=== PATIENT | female | born 1940 | race Caucasian/White ===

== ENCOUNTER 2016-09-17 18:01 | Emergency (ER) | payer OTHER ==
--- NOTE | 2016-09-17 19:31 | ED ORDER SUMMARY ---
..... Patient: DONATO ELLIS OrderSheet [facility] VisitID: [id number] [place] [address] 75y, F Registration Date/Time: 09/17/2016 ORDER SHEET Weight: 99.7 kg (stated) Allergies: No Known Drug Allergy GENERAL ORDERS: Hip 2V Right w AP Pelvis Urgent (18:08 09/17/2016 [facility]) (Ack 18:09 TBergley) (18:42 JSimbeck R.N.) Shoulder 2V or more Right Urgent (18:08 09/17/2016 [facility]) (Ack 18:09 TBergley) (18:42 JSimbeck R.N.) MEDICATION ORDERS: Ibuprofen PO 600 mg (NOW) (19:24 09/17/2016 [facility]) (Ack 19:27 RMarsden R.N.) (19:38 RMarsden R.N.) Zofran ODT PO 4 mg (NOW) (19:24 09/17/2016 [facility]) (Ack 19:27 RMarsden R.N.) (19:39 RMarsden R.N.) Acetaminophen PO 1,000 mg (NOW) (19:24 09/17/2016 [facility]) (Ack 19:27 RMarsden R.N.) (19:39 RMarsden R.N.) IV FLUIDS: ORDER SHEET NOTES: [Electronically signed by Kimberly Doyle R.N. (19:50 09/17/2016)] [Electronically signed by Nigel Oden DO (20:07 09/17/2016)] [Electronically locked/signed by Kimberly Doyle R.N. (19:50 09/17/2016)]
--- NOTE | 2016-09-17 19:31 | ED CLINICAL REPORT ---
Clinical Report - Physicians/Mid Levels [facility]ly [facility] [address] [place] [address] 09/17/2016 18:00 Patient: DONATO ELLIS Time Seen: 18:05. Arrived- By ambulance. Historian- patient and EMS personnel. HISTORY OF PRESENT ILLNESS Chief Complaint: LEFT HIP INJURY. The patient also has injury to right upper extremity (shoulder) and right lower extremity (hip). The injury occurred just prior to arrival. 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 The patient complains of moderate pain. No blow to the head, neck pain, loss of consciousness or seizure. Not dazed. REVIEW OF SYSTEMS No numbness, hearing loss, headache, loss of vision or chest pain. No depression, weakness, abdominal pain, nausea or difficulty breathing. No bladder dysfunction, laceration, fever or vomiting. PAST HISTORY See nurses notes. Hypertension. Type II diabetes mellitus treated with oral med. Chronic back pain. History of cancer ("skin"). Surgeries: Right shoulder surgery. Medications: MetFORMIN HCl Oral. Allergies: No Known Drug Allergy. SOCIAL HISTORY No alcohol use or drug use. ADDITIONAL NOTES The nursing notes have been reviewed. PHYSICAL EXAM Vital Signs: 09/17/2016 18:05 BP: 180/65. HR: 75. RR: 20. O2 saturation: 97%. Temp: 98.2 F. Pain level now: 09/17. Appearance: Alert. Oriented X3. Patient in mild distress. Head: Head non-tender. No Rivera's sign or raccoon eyes. Eyes: Pupils equal, round and reactive to light. EOM intact. ENT: Pharynx normal. Neck: Painless ROM. Non-tender. CVS: Heart sounds normal. Pulses normal. Respiratory: Breath sounds normal. Chest nontender. Abdomen: No visible injury. Soft and nontender. No mass. Obese. Back: No tenderness. ROM normal. No vertebral point tenderness. Skin: Skin intact. Skin warm and dry. Normal skin color. Normal skin turgor. Extremities: Normal inspection. Right shoulder: mild tenderness. No swelling, laceration, abrasion, ecchymosis or puncture wound. No foreign body or deformity. No limitation in ROM. Pelvis stable. Right hip: moderate tenderness. Neurovascular intact distally. No erythema, swelling, laceration, abrasion or ecchymosis. No puncture wound, foreign body or deformity. Not localized to the lateral aspect of the hip. No limitation in ROM. The right leg is not shortened, externally rotated, internally rotated, flexed or adducted. The right leg is not abducted. Right thigh: moderate tenderness located in the lateral aspect of upper thigh. Neurovascular intact distally. No erythema, swelling, laceration, abrasion or ecchymosis. No puncture wound, foreign body or deformity. Right knee. No tenderness or swelling. No limitation in ROM. Neuro: Oriented X 3. No motor deficit. No sensory deficit. LABS, X-RAYS, AND EKG Pelvis X-ray: No fracture. Views: AP. Technique: good. The X-rays were interpreted contemporaneously by me. Rt Shoulder X-ray: No fracture. (old surgery). Views: AP with external rotation and "Y" view. Technique: good. The X-rays were interpreted contemporaneously by me. Rt Hip X-ray: No fracture. Normal alignment. No bony lesion or air in the soft tissue. Soft tissues normal. Joint spaces normal. Views: 2 view hip series. Technique: good. The X-rays were interpreted contemporaneously by me. PROGRESS AND PROCEDURES Course of Care: Acetaminophen 1000 mg PO given. Ibuprofen 600 mg PO given. Zofran 4 mg ODT PO given. 19:25 09/17/16. Pt ambulatory in the ED with lateral thigh tenderness, but steady on feet - no pelvic pain or tenderness. No signs of fracture on x-ray, but pt is informed of the small chance of a small, nondisplaced fracture that may require further evaluation with MRI / CT or bone scan if pain continues / does not improve as expected. Patient/family counseled. Disposition: Discharged. Condition: stable and improved. CLINICAL IMPRESSION Contusion to the right shoulder, right hip and right thigh. Essential hypertension. INSTRUCTIONS Apply ice. You may walk and bear weight as tolerated. Warnings: GENERAL WARNINGS: Return or contact your physician immediately if your condition worsens or changes unexpectedly, if not improving as expected, or if other problems arise. Your Current Medications: CONTINUE TAKING THE FOLLOWING MEDICATIONS: MetFORMIN HCl Oral. Prescription Medications: Ibuprofen 600mg tablets: take 1 tablet orally every 8 hours as needed for pain. Dispense thirty (30). No refills. OTC Medications: Acetaminophen (available over the counter): take according to label instructions. Follow-up: Follow up with your doctor in about three days. Screening today revealed the patient's blood pressure to be in the hypertensive range. The patient should follow up with a primary care provider for blood pressure management. (Electronically signed by Ngiel Oden DO 09/17/2016 20:07)
--- NOTE | 2016-09-17 19:31 | ED NURSING NOTES ---
Clinical Report - Nurses [place] [address] [place] [address] 09/17/2016 18:00 Patient: DONATO ELLIS TRIAGE Triage time 18:05. Acuity: LEVEL 4. Chief Complaint: FALL (Tripped and fell onto her right hip and right shoulder, pain in both.). SEPSIS SCREEN: Sepsis Screen. Negative (no infection suspected/documented). ROMIE COMA SCORE: Romie Coma Scale: 15- eyes open spontaneously (4); best verbal response- oriented x 4 (5); best motor response- obeys commands (6). --18:12 Gregg Sanches R.N. 18:05 09/17/16. BP: 180/65 (regular adult cuff) taken on the left arm, while lying. HR: 75. RR: 20. O2 saturation: 97% on room air. Temp: 98.2 F (oral). Pain level now: 09/17. --18:12 Gregg Sanches R.N. Weight: 99.7 kg stated. Height/Length: 63 inches Per Patient. BMI: 38.9. --18:11 Gregg Sanches R.N. Medications MetFORMIN HCl Oral. --18:08 Gregg Sanches R.N. Allergies No Known Drug Allergy. --18:07 Gregg Sanches R.N. History Arrived by EMS, and (A-47). Historian: EMS and patient. This occurred just prior to arrival. SOCIAL HX: Smoker- current status unknown (cigarette). No alcohol use or drug use. ABUSE ASSESSMENT: No report of abuse. --18:12 Gregg Sanches R.N. PROBLEMS: Skin Cancer. Hypertension. Diabetes Mellitus. --18:10 Gregg Sanches R.N. ADDITIONAL SURGERIES: Right shoulder. --18:10 Gregg Sanches R.N. Interventions ID band on patient. To treatment room. --18:12 Gregg Sanches R.N. PHYSICAL ASSESSMENT late entry -18:11. To room via stretcher. GENERAL / NEURO / PSYCH: Alert. Oriented X 4. Appears in no acute distress. HEENT: Pupils equal, round and reactive to light. Head non-tender. RESPIRATORY: Respirations not labored. Chest nontender. Breath sounds within normal limits. CVS: Pulses within normal limits. Capillary refill less than 2 seconds. GI / : Abdomen soft and nontender. EXTREMITIES: Limited ROM present in the right shoulder and right hip. Neuro-vascular status intact to the extremity. SKIN: Skin intact. Skin is warm and dry. --18:21 Gregg Sanches R.N. NURSING PROGRESS NOTES late entry -18:11. Reassurance given. Two patient identifiers checked. Call light placed in reach. Side rails up x 2. Bed placed in lowest position. Brakes of bed on. Patient ready for evaluation- chart flagged. --18:22 Gregg Sanches R.N. 19:13 09/17/16. Care transferred and report received (from MILLER Escobedo). --19:13 Kimberly Doyle R.N. ( Patient ambulated with some stiffness and pain. She is able to walk independently. Patient was walking with limp. Patient's daughter notes that the patient typically has a limp due to back pain.). --19:26 Kimberly Doyle R.N. 19:38 09/17/2016 Ibuprofen PO Tablets 600 mg given. Allergies verified and confirmed 5 rights. --19:38 Kimberly Doyle R.N. 19:39 09/17/2016 Zofran ODT (Ondansetron) PO Oral Disintegrating Tablets 4 mg given. Allergies verified and confirmed 5 rights. --19:39 Kimberly Doyle R.N. 19:39 09/17/2016 Acetaminophen (APAP) PO Tablets 1000 mg given. Allergies verified and confirmed 5 rights. --19:39 Kimberly Doyle R.N. DISPOSITION / DISCHARGE 19:36 09/17/16. --19:36 Kimberly Doyle R.N. 19:35 09/17/16. BP: 170/74. HR: 71. RR: 16. O2 saturation: 95%. Temp: deferred. Pain level now: 11/17. --19:36 Kimberly Doyle R.N. 19:50 09/17/16. Condition at departure: improved. No learning barriers present. Discharge instructions provided and reviewed with the patient and family. Reviewed warnings. Reviewed medication(s). Treatments reviewed. Activity restrictions reviewed. Patient and family verbalized understanding. Written instructions provided in [place]ian. The patient was discharged home and accompanied by family. She left the Emergency Department ambulatory and via private vehicle. Family member driving. ( Patient ambulated to car with RN. Patient's daughter is driving. Patient was given an ice bag to use in the car.). --19:50 Kimberly Doyle R.N. Locked/Released at 09/17/2016 19:50 by Kimberly Doyle R.N.
--- NOTE | 2016-09-17 19:31 | ED CLINICAL REPORT ---
Clinical Report - Physicians/Mid Levels [facility] [address] [place] [address] 09/17/2016 18:00 Patient: DONATO ELLIS Time Seen: 18:05. Arrived- By ambulance. Historian- patient and EMS personnel. HISTORY OF PRESENT ILLNESS Chief Complaint: LEFT HIP INJURY. The patient also has injury to right upper extremity (shoulder) and right lower extremity (hip). The injury occurred just prior to arrival. 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 The patient complains of moderate pain. No blow to the head, neck pain, loss of consciousness or seizure. Not dazed. REVIEW OF SYSTEMS No numbness, hearing loss, headache, loss of vision or chest pain. No depression, weakness, abdominal pain, nausea or difficulty breathing. No bladder dysfunction, laceration, fever or vomiting. PAST HISTORY See nurses notes. Hypertension. Type II diabetes mellitus treated with oral med. Chronic back pain. History of cancer ("skin"). Surgeries: Right shoulder surgery. Medications: MetFORMIN HCl Oral. Allergies: No Known Drug Allergy. SOCIAL HISTORY No alcohol use or drug use. ADDITIONAL NOTES The nursing notes have been reviewed. PHYSICAL EXAM Vital Signs: 09/17/2016 18:05 BP: 180/65. HR: 75. RR: 20. O2 saturation: 97%. Temp: 98.2 F. Pain level now: 09/17. Appearance: Alert. Oriented X3. Patient in mild distress. Head: Head non-tender. No Rivera's sign or raccoon eyes. Eyes: Pupils equal, round and reactive to light. EOM intact. ENT: Pharynx normal. Neck: Painless ROM. Non-tender. CVS: Heart sounds normal. Pulses normal. Respiratory: Breath sounds normal. Chest nontender. Abdomen: No visible injury. Soft and nontender. No mass. Obese. Back: No tenderness. ROM normal. No vertebral point tenderness. Skin: Skin intact. Skin warm and dry. Normal skin color. Normal skin turgor. Extremities: Normal inspection. Right shoulder: mild tenderness. No swelling, laceration, abrasion, ecchymosis or puncture wound. No foreign body or deformity. No limitation in ROM. Pelvis stable. Right hip: moderate tenderness. Neurovascular intact distally. No erythema, swelling, laceration, abrasion or ecchymosis. No puncture wound, foreign body or deformity. Not localized to the lateral aspect of the hip. No limitation in ROM. The right leg is not shortened, externally rotated, internally rotated, flexed or adducted. The right leg is not abducted. Right thigh: moderate tenderness located in the lateral aspect of upper thigh. Neurovascular intact distally. No erythema, swelling, laceration, abrasion or ecchymosis. No puncture wound, foreign body or deformity. Right knee. No tenderness or swelling. No limitation in ROM. Neuro: Oriented X 3. No motor deficit. No sensory deficit. LABS, X-RAYS, AND EKG Pelvis X-ray: No fracture. Views: AP. Technique: good. The X-rays were interpreted contemporaneously by me. Rt Shoulder X-ray: No fracture. (old surgery). Views: AP with external rotation and "Y" view. Technique: good. The X-rays were interpreted contemporaneously by me. Rt Hip X-ray: No fracture. Normal alignment. No bony lesion or air in the soft tissue. Soft tissues normal. Joint spaces normal. Views: 2 view hip series. Technique: good. The X-rays were interpreted contemporaneously by me. PROGRESS AND PROCEDURES Course of Care: Acetaminophen 1000 mg PO given. Ibuprofen 600 mg PO given. Zofran 4 mg ODT PO given. 19:25 09/17/16. Pt ambulatory in the ED with lateral thigh tenderness, but steady on feet - no pelvic pain or tenderness. No signs of fracture on x-ray, but pt is informed of the small chance of a small, nondisplaced fracture that may require further evaluation with MRI / CT or bone scan if pain continues / does not improve as expected. Patient/family counseled. Disposition: Discharged. Condition: stable and improved. CLINICAL IMPRESSION Contusion to the right shoulder, right hip and right thigh. Essential hypertension. INSTRUCTIONS Apply ice. You may walk and bear weight as tolerated. Warnings: GENERAL WARNINGS: Return or contact your physician immediately if your condition worsens or changes unexpectedly, if not improving as expected, or if other problems arise. Your Current Medications: CONTINUE TAKING THE FOLLOWING MEDICATIONS: MetFORMIN HCl Oral. Prescription Medications: Ibuprofen 600mg tablets: take 1 tablet orally every 8 hours as needed for pain. Dispense thirty (30). No refills. OTC Medications: Acetaminophen (available over the counter): take according to label instructions. Follow-up: Follow up with your doctor in about three days. Screening today revealed the patient's blood pressure to be in the hypertensive range. The patient should follow up with a primary care provider for blood pressure management. (Electronically signed by Nigel Oden DO 09/17/2016 20:07)
--- NOTE | 2016-09-17 19:31 | ED ORDER SUMMARY ---
..... Patient: DONATO ELLIS OrderSheet [facility] VisitID: [id number] [place] [address] 75y, F Registration Date/Time: 09/17/2016 ORDER SHEET Weight: 99.7 kg (stated) Allergies: No Known Drug Allergy GENERAL ORDERS: Hip 2V Right w AP Pelvis Urgent (18:08 09/17/2016 [facility]) (Ack 18:09 TBergley) (18:42 JSimbeck R.N.) Shoulder 2V or more Right Urgent (18:08 09/17/2016 [facility]) (Ack 18:09 TBergley) (18:42 JSimbeck R.N.) MEDICATION ORDERS: Ibuprofen PO 600 mg (NOW) (19:24 09/17/2016 [facility]) (Ack 19:27 RMarsden R.N.) (19:38 RMarsden R.N.) Zofran ODT PO 4 mg (NOW) (19:24 09/17/2016 [facility]) (Ack 19:27 RMarsden R.N.) (19:39 RMarsden R.N.) Acetaminophen PO 1,000 mg (NOW) (19:24 09/17/2016 [facility]) (Ack 19:27 RMarsden R.N.) (19:39 RMarsden R.N.) IV FLUIDS: ORDER SHEET NOTES: [Electronically signed by Kimberly Doyle R.N. (19:50 09/17/2016)] [Electronically signed by Nigel Oden DO (20:07 09/17/2016)] [Electronically locked/signed by Kimberly Doyle R.N. (19:50 09/17/2016)]
--- NOTE | 2016-09-17 20:07 | ED MED RECONCILIATION SUMMARY ---
Patient: DONATO ELLIS Medication Reconciliation Report [facility] VisitID: [id number] [place] [address] 75y, F Registration Date/Time: 09/17/2016 Weight: 99.7 kg Height/Length: 63 in. BMI: 38.9 ALLERGIES: No Known Drug Allergy The patient's Home Medications are listed below: CONTINUE TAKING THE FOLLOWING MEDICATIONS: MetFORMIN HCl Oral The source(s) of the original Home Medication information: Not obtained. The following Medications were given to the patient in the Emergency Department: Ibuprofen [PO] PO 600 mg, administered: 09/17/2016 7:38:00 PM Zofran ODT [PO] PO 4 mg, administered: 09/17/2016 7:39:00 PM Acetaminophen [PO] PO 1000 mg, administered: 09/17/2016 7:39:00 PM The following Medications were prescribed to the patient: Acetaminophen (available over the counter): take according to label instructions. -- Nigel Oden DO Ibuprofen 600mg tablets: take 1 tablet orally every 8 hours as needed for pain. Dispense thirty (30). No refills. -- Nigel Oden DO
--- NOTE | 2016-09-17 20:07 | ED MAR SUMMARY ---
..... Medication Administration Record [facility] [address] [place] [address] Patient: DONATO ELLIS Visit ID: [id number] 75y, F Weight: 99.7 kg Height/Length: 63 in BMI: 38.9 ALLERGIES: No Known Drug Allergy Given 1909/17/2016 Kimberly Doyle RRamonNRamon Medication Administered: IBUPROFEN [PO], Dose: 600 mg Tablets PO. Medication Ordered: Ibuprofen PO 600 mg (NOW). Given :09/17/2016 Kimberly Doyle, R.N. Medication Administered: ZOFRAN ODT [PO] (ONDANSETRON), Dose: 4 mg Oral Disintegrating Tablets PO. Medication Ordered: Zofran ODT PO 4 mg (NOW). Given :09/17/2016 Kimberly Doyle, R.N. Medication Administered: ACETAMINOPHEN [PO] (APAP), Dose: 1000 mg Tablets PO. Medication Ordered: Acetaminophen PO 1,000 mg (NOW).
--- NOTE | 2016-09-17 20:07 | ED MED RECONCILIATION SUMMARY ---
Patient: DONATO ELLIS Medication Reconciliation Report [facility] VisitID: [id number] [place] [address] 75y, F Registration Date/Time: 09/17/2016 Weight: 99.7 kg Height/Length: 63 in. BMI: 38.9 ALLERGIES: No Known Drug Allergy The patient's Home Medications are listed below: CONTINUE TAKING THE FOLLOWING MEDICATIONS: MetFORMIN HCl Oral The source(s) of the original Home Medication information: Not obtained. The following Medications were given to the patient in the Emergency Department: Ibuprofen [PO] PO 600 mg, administered: 09/17/2016 7:38:00 PM Zofran ODT [PO] PO 4 mg, administered: 09/17/2016 7:39:00 PM Acetaminophen [PO] PO 1000 mg, administered: 09/17/2016 7:39:00 PM The following Medications were prescribed to the patient: Acetaminophen (available over the counter): take according to label instructions. -- Nigel Oden DO Ibuprofen 600mg tablets: take 1 tablet orally every 8 hours as needed for pain. Dispense thirty (30). No refills. -- Nigel Oden DO
--- NOTE | 2016-09-17 20:07 | ED DISCHARGE INSTRUCTIONS ---
Patient: DONATO ELLIS General Instructions [facility] VisitID: [id number] [place] [address] 75y, F Registration Date/Time: 09/17/2016 Contusion to the right shoulder, right hip and right thigh. Essential hypertension. INSTRUCTIONS Apply ice. You may walk and bear weight as tolerated. Warnings: GENERAL WARNINGS: Return or contact your physician immediately if your condition worsens or changes unexpectedly, if not improving as expected, or if other problems arise. Your Current Medications: CONTINUE TAKING THE FOLLOWING MEDICATIONS: MetFORMIN HCl Oral. Prescription Medications: Ibuprofen 600mg tablets: take 1 tablet orally every 8 hours as needed for pain. Dispense thirty (30). No refills. OTC Medications: Acetaminophen (available over the counter): take according to label instructions. Follow-up: Follow up with your doctor in about three days. Screening today revealed the patient's blood pressure to be in the hypertensive range. The patient should follow up with a primary care provider for blood pressure management. ADDITIONAL INFORMATION Shoulder Contusion You have a contusion of your shoulder. This causes local pain, swelling, and sometimes bruising. There are no broken bones. This injury takes a few days, or up to six weeks to heal, depending on the severity. Moderate to severe shoulder contusions are treated with a sling or shoulder immobilizer. Minor contusions can be treated without any special support. Home Care: If a sling was provided, leave it in place for the time advised by your doctor. If you are unsure how long to wear it, ask for advice. If the sling becomes loose, adjust it so that your forearm is level with the ground and the shoulder feels well supported. Apply an ice pack (ice cubes in a plastic bag, wrapped in a towel) over the injured area for 20 minutes every 1 to 2 hours the first day for pain relief. Continue this 3 to 4 times a day until the pain and swelling go away. You may use acetaminophen (Tylenol) or ibuprofen (Motrin, Advil) to control pain, unless another pain medicine was prescribed. (NOTE: If you have chronic liver or kidney disease or ever had a stomach ulcer or GI bleeding, talk with your doctor before using these medicines.) Shoulder joints become stiff if left in a sling for too long. [id number] exercises should usually be started within the first ten days after injury. Consult your doctor on what type of exercises to do and how soon to start. Unless you were told otherwise, you may remove the sling to shower or bathe. Follow Up with your doctor, or as advised by our staff, if you are not starting to improve within the next 5 days. Get Prompt Medical Attention if any of the following occur: Pain or swelling increases Large amount of bruising of the shoulder or upper arm Hand or fingers become cold, blue, numb or tingly Hip Contusion You have a contusion of the hip. This is a bruise with swelling and some bleeding under the skin. There are no fracture (broken bone) seen on the x-ray. This injury takes a few days to a few weeks to heal. Home Care If walking causes pain, use crutches or a walker until you can walk without pain. These items can be rented at most pharmacies and orthopedic supply stores. Apply an ice pack (ice cubes in a plastic bag, wrapped in a towel) over the injured area for 20 minutes every 1-2 hours the firstday. You should continue with ice packs 3-4 times a day for the next two days. Continue the use of ice packs for relief of pain and swelling as needed. You may use acetaminophen (Tylenol) or ibuprofen (Motrin, Advil) to control pain, unless another pain medicine was prescribed. [NOTE: If you have chronic liver or kidney disease or ever had a stomach ulcer or GI bleeding, talk with your doctor before using these medicines.] If you are not able to get to the bathroom easily or take care of your meal preparation, home health care may be available to provide in-home nursing services. Check with your doctor, the hospital's social service department or through private nursing agencies to see if your insurance will cover this kind of care. Follow Up Follow up with your doctor or as advised by our staff if your symptoms do not begin to improve after one week. A repeat x-ray or a CT-scan may be needed to check again for a fracture. [NOTE: If X-rays were taken, they will be reviewed by a radiologist. You will be notified of any new findings that may affect your care.] Get Prompt Medical Attention Get prompt medical attention if any of the following occur: Increased swelling or increased bruising Pain becomes worse Decreased ability to bear weight on the injured side Swelling or pain below your knee Chest pain or shortness of breath High Blood Pressure --Established High Blood Pressure (Hypertension) is a chronic disease. The cause is unknown in most cases. It can usually be controlled with lifestyle changes and/or medicines. Symptoms of high blood pressure may include headache, dizziness, visual changes, chest pain and shortness of breath. Sometimes it causes no symptoms at all. However, even if there are no symptoms, untreated high blood pressure increases the risk of heart attack, also known as acute myocardial infarction, or AMI, and stroke. It is a serious health risk and should not be ignored. A normal blood pressure is 120/80 or less. The first (top) number is the "systolic" pressure. The second (bottom) number is the "diastolic" pressure. Hypertension exists when either the top number is 140 or higher, OR the bottom number is 90 or higher on repeated measurements. Home Care: All patients with high blood pressure should do the following to lower their pressure. If you are on medicines, then these methods may reduce or eliminate your need for medicines in the future. Begin a weight loss program if you are overweight. Reduce your salt intake. Avoid high salt foods (olives, pickles, smoked meats, salted potato chips, etc.). Do not add salt to your food at the table. Use only small amounts of salt when cooking. Begin an exercise program. Discuss with your doctor what type of exercise program would be best for you. It doesn't have to be difficult. Even brisk walking for 20 minutes three times a week is a good form of exercise. Avoid medicines which contain heart stimulants. This includes many cold and sinus decongestant pills and sprays as well as diet pills. Check the warnings about hypertension on the label. Stimulants such as amphetamine or cocaine could be lethal for someone with hypertension. Never take these. Limit your caffeine intake or switch to caffeine-free products. Stop smoking. If you are a long-time smoker, this can be hard. Enroll in a stop-smoking program to improve your chance of success. Learning how to handle stress better is an important part of any program to lower blood pressure. Learn about relaxation methods such as meditation, yoga or biofeedback. If medicines were prescribed, take them exactly as directed. Missing doses may cause your blood pressure get out of control. Consider buying an automatic blood pressure machine (available at most pharmacies). Use this to monitor your blood pressure at home and report the results to your doctor. Follow Up: Regular visits to your own physician for blood pressure checks and medicine adjustment is an important part of your care. Make a follow-up appointment as directed by our staff. Get Prompt Medical Attention if any of the following occur: Chest pain or shortness of breath Severe headache Throbbing or rushing sound in the ears Nosebleed Sudden severe abdominal pain Extreme drowsiness, confusion or fainting Dizziness or vertigo (dizziness with spinning sensation) Weakness of an arm or leg or one side of the face Difficulty with speech or vision Ibuprofen Oral tablet What is this medicine? IBUPROFEN (eye BYOO proe fen) is a non-steroidal anti-inflammatory drug (NSAID). It is used for dental pain, fever, headaches or migraines, osteoarthritis, rheumatoid arthritis, or painful monthly periods. It can also relieve minor aches and pains caused by a cold, flu, or sore throat. How should I use this medicine? Take this medicine by mouth with a glass of water. Follow the directions on the prescription label. Take this medicine with food if your stomach gets upset. Try to not lie down for at least 10 minutes after you take the medicine. Take your medicine at regular intervals. Do not take your medicine more often than directed. A special MedGuide will be given to you by the pharmacist with each prescription and refill. Be sure to read this information carefully each time. Talk to your chemical processing laborer regarding the use of this medicine in children. Special care may be needed. What side effects may I notice from receiving this medicine? Side effects that you should report to your doctor or health daycare provider as soon as possible: allergic reactions like skin rash, itching or hives, swelling of the face, lips, or tongue black or bloody stools, blood in the urine or in vomit breathing problems changes in vision chest pain general ill feeling or flu-like symptoms nausea or vomiting redness, blistering, peeling or loosening of the skin, including inside the mouth slurred speech or weakness on one side of the body stomach pain unexplained weight gain or swelling unusually weak or tired yellowing of eyes or skin Side effects that usually do not require medical attention (report to your doctor or health daycare provider if they continue or are bothersome): constipation or diarrhea dizziness gas or heartburn stomach upset What may interact with this medicine? Do not take this medicine with any of the following medications: cidofovir ketorolac methotrexate pemetrexed This medicine may also interact with the following medications: alcohol aspirin diuretics lithium other drugs for inflammation like prednisone warfarin What if I miss a dose? If you miss a dose, take it as soon as you can. If it is almost time for your next dose, take only that dose. Do not take double or extra doses. Where should I keep my medicine? Keep out of the reach of children. Store at room temperature between 15 and 30 degrees C (59 and 86 degrees F). Keep container tightly closed. Throw away any unused medicine after the expiration date. What should I tell my health care provider before I take this medicine? They need to know if you have any of these conditions: asthma cigarette smoker drink more than 3 alcohol containing drinks a day heart disease or circulation problems such as heart failure or leg edema (fluid retention) high blood pressure kidney disease liver disease stomach bleeding or ulcers an unusual or allergic reaction to ibuprofen, aspirin, other NSAIDS, other medicines, foods, dyes, or preservatives or trying to get breast-feeding What should I watch for while using this medicine? Tell your doctor or healthcare professional if your symptoms do not start to get better or if they get worse. This medicine does not prevent heart attack or stroke. In fact, this medicine may increase the chance of a heart attack or stroke. The chance may increase with longer use of this medicine and in people who have heart disease. If you take aspirin to prevent heart attack or stroke, talk with your doctor or health daycare provider. Do not take other medicines that contain aspirin, ibuprofen, or naproxen with this medicine. Side effects such as stomach upset, nausea, or ulcers may be more likely to occur. Many medicines available without a prescription should not be taken with this medicine. This medicine can cause ulcers and bleeding in the stomach and intestines at any time during treatment. Ulcers and bleeding can happen without warning symptoms and can cause . To reduce your risk, do not smoke cigarettes or drink alcohol while you are taking this medicine. You may get drowsy or dizzy. Do not drive, use machinery, or do anything that needs mental alertness until you know how this medicine affects you. Do not stand or sit up quickly, especially if you are an older patient. This reduces the risk of dizzy or fainting spells. This medicine can cause you to bleed more easily. Try to avoid damage to your teeth and gums when you brush or floss your teeth. Acetaminophen Oral tablet What is this medicine? ACETAMINOPHEN (a set a JUDY sherice fen) is a pain reliever. It is used to treat mild pain and fever. How should I use this medicine? Take this medicine by mouth with a glass of water. Follow the directions on the package or prescription label. Take your medicine at regular intervals. Do not take your medicine more often than directed. Talk to your chemical processing laborer regarding the use of this medicine in children. While this drug may be prescribed for children as young as 6 years of age for selected conditions, precautions do apply. What side effects may I notice from receiving this medicine? Side effects that you should report to your doctor or health daycare provider as soon as possible: allergic reactions like skin rash, itching or hives, swelling of the face, lips, or tongue breathing problems fever or sore throat redness, blistering, peeling or loosening of the skin, including inside the mouth trouble passing urine or change in the amount of urine unusual bleeding or bruising unusually weak or tired yellowing of the eyes or skin Side effects that usually do not require medical attention (report to your doctor or health daycare provider if they continue or are bothersome): headache nausea, stomach upset What may interact with this medicine? alcohol imatinib isoniazid other medicines with acetaminophen What if I miss a dose? If you miss a dose, take it as soon as you can. If it is almost time for your next dose, take only that dose. Do not take double or extra doses. Where should I keep my medicine? Keep out of reach of children. Store at room temperature between 20 and 25 degrees C (68 and 77 degrees F). Protect from moisture and heat. Throw away any unused medicine after the expiration date. What should I tell my health care provider before I take this medicine? They need to know if you have any of these conditions: if you frequently drink alcohol containing drinks liver disease an unusual or allergic reaction to acetaminophen, other medicines, foods, dyes or preservatives or trying to get breast-feeding What should I watch for while using this medicine? Tell your doctor or health daycare provider if the pain lasts more than 10 days (5 days for children), if it gets worse, or if there is a new or different kind of pain. Also, check with your doctor if a fever lasts for more than 3 days. Do not take other medicines that contain acetaminophen with this medicine. Always read labels carefully. If you have questions, ask your doctor or pharmacist. If you take too much acetaminophen get medical help right away. Too much acetaminophen can be very dangerous and cause liver damage. Even if you do not have symptoms, it is important to get help right away. You have been given the following additional information: Shoulder Contusion Hip Contusion Hypertension, Established Ibuprofen Oral tablet Acetaminophen Oral tablet You may walk and bear weight as tolerated. (Electronically signed by Nigel Oden DO 09/17/2016 20:07)
--- NOTE | 2016-09-17 20:07 | ED MAR SUMMARY ---
..... Medication Administration Record [facility] [address] [place] [address] Patient: DONATO ELLIS Visit ID: [id number] 75y, F Weight: 99.7 kg Height/Length: 63 in BMI: 38.9 ALLERGIES: No Known Drug Allergy Given 1909/17/2016 Kimberly Doyle RRamonNRamon Medication Administered: IBUPROFEN [PO], Dose: 600 mg Tablets PO. Medication Ordered: Ibuprofen PO 600 mg (NOW). Given :09/17/2016 Kimberly Doyle, R.N. Medication Administered: ZOFRAN ODT [PO] (ONDANSETRON), Dose: 4 mg Oral Disintegrating Tablets PO. Medication Ordered: Zofran ODT PO 4 mg (NOW). Given :09/17/2016 Kimberly Doyle, R.N. Medication Administered: ACETAMINOPHEN [PO] (APAP), Dose: 1000 mg Tablets PO. Medication Ordered: Acetaminophen PO 1,000 mg (NOW).
--- NOTE | 2016-09-17 21:19 | DIAGNOSTIC IMAGING REPORT ---
PROCEDURE: XR HIP 2VW W W/O AP PELVIS-RT INDICATION: TRAUMA/INJURY TECHNIQUE: AP view of the pelvis and hips with lateral view of the right hip. COMPARISON: None. FINDINGS: RIGHT HIP: Decreased mineralization. No definite fractures. On the lateral hip view, there is a smooth buckle of the posterior femoral neck cortex without a discrete fracture plane visible. No definite line of sclerosis to suggest impaction. No dislocation. Moderate degenerative changes in the femoral acetabular joint. Mild enthesopathy at the greater trochanter. Heavy vascular calcification. PELVIS: Decreased mineralization. No fractures visible. Mild degenerative change at the left femoral acetabular joint. Sacroiliac joints and pubic symphysis appear intact with mild degeneration at the pubic symphysis. Moderate degenerative change at the lower lumbar spine. Moderate overall arterial calcification. Normal bowel gas pattern. IMPRESSION: 1. There is a smooth buckling morphology of the posterior right femoral neck cortex without a definite line of condensation or fracture plane. If there are ongoing symptoms, consider MRI or CT for occult fracture. 2. Mild demineralization. 3. Degenerative changes, mainly in the lumbar spine. 4. Moderate atherosclerosis.
--- NOTE | 2016-09-17 21:23 | DIAGNOSTIC IMAGING REPORT ---
PROCEDURE: XR SHOULDER 2 OR MORE VW-RIGHT INDICATION: TRAUMA/INJURY TECHNIQUE: Four views of the right shoulder COMPARISON: None. FINDINGS: Mildly decreased mineralization. No acute fractures. No glenohumeral joint dislocation. No shoulder separation. A surgical screw projects anterior to the humeral head. No unusual soft tissue calcifications. The visible ribs are intact. Underlying lung demonstrates coarse interstitium. IMPRESSION: 1. Intact right shoulder. 2. Postsurgical changes. 3. Mild demineralization.
== END 2016-09-17 19:50 | disposition home or self-care (01) ==
LOC: ED SRH 18:01
DX: S70.01XA Contusion of right hip, initial encounter (principal); S40.011A Contusion of right shoulder, initial encounter; S70.11XA Contusion of right thigh, initial encounter; I10 Essential (primary) hypertension; W18.31XA Fall on same level due to stepping on an object, initial encounter; Y93.01 Activity, walking, marching and hiking; Y99.9 Unspecified external cause status; Y92.89 Other specified places as the place of occurrence of the external cause; E11.9 Type 2 diabetes mellitus without complications; Z79.84 Long term (current) use of oral hypoglycemic drugs